=== PATIENT | female | born 1965 | race Two or more races ===

== ENCOUNTER 2023-11-22 11:26 | Inpatient (IN) | payer MEDICAID ==
[~2023-11-22] VITALS: Ht 152.4 cm; Wt 92.9 kg
[2023-11-22 13:29] LABS: Basophils # (auto) 0.1 10 ^3/uL (0-0.2); Basophils % (auto) 0.9 % (0.0-2.0); Hemoglobin 12.2 g/dL (12.2-16.2); Lymphocytes # (auto) 1.8 10 ^3/uL (0.4-5.4); Lymphocytes % (auto) 24.7 % (10.0-50.0); Mean Corpuscular Hemoglobin 25.8 pg (28.0-32.0); Monocytes # (auto) 0.7 10 ^3/uL (0-1.3)
[2023-11-22 13:31] LABS: Eosinophils # (auto) 0 10 ^3/uL (0-0.8); Eosinophils % (auto) 0.7 % (0.0-7.0); Hematocrit 37.5 % (36.0-46.0); Mean Corpuscular Hgb Conc. 32.6 g/dL (32.0-36.0); Mean Corpuscular Volume 79.1 fL (80.0-100.0); Monocytes % (auto) 9.3 % (0.0-12.0); Neutrophils # (auto) 4.7 10 ^3/uL (1.6-8.6); Neutrophils % (auto) 64.4 % (37.0-80.0); Nucleated Red Blood Cells % 0.2 %; Red Blood Cells 4.74 10^6/uL (4.0-5.20); Red Cell Distribution Width 15.9 % (11.8-14.3); White Blood Cell 7.3 10^3/uL (4.4-10.8)
[2023-11-22 13:33] LABS: Chloride 106 mmol/L (98-107); Potassium 3.6 mmol/L (3.5-5.1); Sodium 137 mmol/L (136-145)
[2023-11-22 13:34] LABS: Anion Gap 7 (5-15); Carbon Dioxide 24 mmol/L (20-30)
[2023-11-22 13:35] LABS: Calcium 9.3 mg/dL (8.7-10.4)
[2023-11-22 13:39] LABS: Glucose 101 mg/dL (74-106)
[2023-11-22 13:40] LABS: Blood Urea Nitrogen 12 mg/dL (9-23)
[2023-11-22] MEDS ORDERED: DOCUSATE SOD 100 MG CAP PO PRN (15:30)
[2023-11-22] MEDS ORDERED: MORPHINE SULFATE INJ 2 MG/ml SYRG IV PRN (15:30)
[2023-11-22] MEDS ORDERED: ONDANSETRON HCL 4 MG/2 ML VIAL IV PRN (15:30)
[2023-11-22] MEDS: SODIUM CHLORIDE 0.9% 1,000 ML IV SCH (16:21)
[2023-11-22 16:43] VITALS: PULSE 80; RESP 20; O2SAT 96
[2023-11-22] MEDS ORDERED: LORazepam 2MG/ML-1ML VIAL IV PRN (20:30)
[2023-11-22 21:28] LABS: Triglycerides 176 mg/dL (< 150)
[2023-11-22 21:29] LABS: LDL Cholesterol 83 mg/dL (< 100)
[2023-11-22 21:30] LABS: Cholesterol 143 mg/dL (< 200); HDL Cholesterol 28 mg/dL (40-59)
[2023-11-22] MEDS: MECLIZINE HCL 25 MG TAB PO SCH (23:20)
[2023-11-22] MEDS: ATORVASTATIN 20 MG TAB PO SCH (23:20)
[2023-11-23] VITALS (7 sets, daily range): BP systolic 123–156; BP diastolic 69–79; PULSE 69–80; RESP 14–18; TEMP 97.9–98.2; O2SAT 96–97
[2023-11-23 07:51] LABS: Alanine Aminotransferase 16 U/L (7-40); Albumin 4.2 g/dL (3.2-4.8); Alkaline Phosphatase 139 U/L (46-116); Anion Gap 12 (5-15); BUN/Creatinine Ratio 16.3 (10.0-20.0); Blood Urea Nitrogen 16 mg/dL (9-23); Carbon Dioxide 19 mmol/L (20-30); Chloride 108 mmol/L (98-107); Glucose 128 mg/dL (74-106); Potassium 4.1 mmol/L (3.5-5.1); Sodium 139 mmol/L (136-145)
[2023-11-23 07:52] LABS: Aspartate Aminotransferase 28 U/L (13-40); Bilirubin, Total 0.5 mg/dL (0.2-1.0); Total Protein 7.1 g/dL (5.7-8.2)
[2023-11-23 08:12] LABS: Rapid Strep A Screen-Throat Negative
[2023-11-23] MEDS: ASPirin 81 mg TAB PO SCH (09:42)
[2023-11-23 10:23] LABS: Amphetamine Screen, Urine Neg (NEGATIVE); Barbiturate Scree,Urine Neg (NEGATIVE); Benzodiazephine Screen, Urine Neg (NEGATIVE); Cannabinoid Screen, Urine Neg (NEGATIVE); Cocaine Screen, Urine Neg (NEGATIVE); Opiate Scree,Urine Neg (NEGATIVE); Phencyclidine Screen, Urine Neg (NEGATIVE)
[2023-11-23 10:36] LABS: Urine Bacteria FEW /hpf (None Seen); Urine Blood Negative /uL (Negative); Urine Budding Yeast OCCASIONAL /hpf (None Seen); Urine Clarity Clear (Clear); Urine Color Colorless (Yellow); Urine Protein, UAD Negative (Negative); Urine Specific Gravity 1.005 (1.001-1.035); Urine Urobilinogen Normal (Negative); Urine WBC 16 /hpf (0 - 5); Urine pH 5.5 (5.0-9.0)
[2023-11-23] MEDS ORDERED: NAP500T PO (12:51)
[2023-11-23 13:24] LABS: Basophils # (auto) 0.1 10 ^3/uL (0-0.2); Basophils % (auto) 1.2 % (0.0-2.0); Eosinophils # (auto) 0.1 10 ^3/uL (0-0.8); Eosinophils % (auto) 1.5 % (0.0-7.0); Lymphocytes # (auto) 1.7 10 ^3/uL (0.4-5.4); Mean Corpuscular Volume 79.7 fL (80.0-100.0); Monocytes # (auto) 0.5 10 ^3/uL (0-1.3); Monocytes % (auto) 7.4 % (0.0-12.0); Neutrophils # (auto) 4.8 10 ^3/uL (1.6-8.6); Nucleated Red Blood Cells % 0.2 %; Red Cell Distribution Width 16.3 % (11.8-14.3); White Blood Cell 7.2 10^3/uL (4.4-10.8)
[2023-11-23 13:26] LABS: Hemoglobin 11.5 g/dL (12.2-16.2); Lymphocytes % (auto) 23.8 % (10.0-50.0); Mean Corpuscular Hemoglobin 26.1 pg (28.0-32.0); Mean Corpuscular Hgb Conc. 32.8 g/dL (32.0-36.0); Neutrophils % (auto) 66.1 % (37.0-80.0)
[2023-11-23] MEDS: PIPERACILLIN-TAZOB 3.375GM 100 ML IV SCH (18:50)
[2023-11-23] MEDS: ENOXAPARIN SOD 100 MG/1 ML SYRINGE SC SCH (22:13)
[2023-11-24] VITALS (8 sets, daily range): BP systolic 114–142; BP diastolic 67–88; PULSE 56–94; RESP 14–18; TEMP 97.6–98.1; O2SAT 96–100
[2023-11-24] MEDS: ACETAMINOPHEN 325 MG TAB PO PRN (09:53)
[2023-11-24] MEDS: APIXABAN 5 MG TAB PO SCH (21:56)
[2023-11-25] VITALS (8 sets, daily range): BP systolic 122–154; BP diastolic 63–89; PULSE 61–74; RESP 16–19; TEMP 97–98.1; O2SAT 96–98
[2023-11-25] MEDS ORDERED: AUG875T PO (16:06)
[2023-11-25] MEDS ORDERED: APIX5TAB PO (16:44)
== END 2023-11-25 19:12 | disposition home or self-care (01) | DRG 111 ==
LOC: ER 11:26 → TELE 15:26 → TELE-WESTW 11-23 08:09
PROVIDERS: ADMIT Nurse Practitioner Family; ATTEND Internal Medicine
DX: H81.10 Benign paroxysmal vertigo, unspecified ear (principal); I82.622 Acute embolism and thrombosis of deep veins of left upper extremity; J32.9 Chronic sinusitis, unspecified; J02.9 Acute pharyngitis, unspecified; E66.9 Obesity, unspecified; M81.0 Age-related osteoporosis without current pathological fracture; F17.200 Nicotine dependence, unspecified, uncomplicated; R59.0 Localized enlarged lymph nodes; Z79.01 Long term (current) use of anticoagulants; Z82.49 Family history of ischemic heart disease and other diseases of the circulatory system; Z79.82 Long term (current) use of aspirin; Z79.899 Other long term (current) drug therapy; Z68.39 Body mass index [BMI] 39.0-39.9, adult
CPT/HCPCS: 36415; 70450; 70551; 80048; 80053; 80061; 80307; 81001; 82962; 85025; 87070; 87880; 93005; 93306; 93886; 93971; G0378; J2543

== ENCOUNTER → 2024-12-02 | Outpatient (CLI) | payer MEDICAID ==
[~2024-12-02] MED LIST: APIX5TAB PO; AUG875T PO
[2024-12-02 12:24] LABS: Basophils # (auto) 0.1 10 ^3/uL (0-0.2); Eosinophils # (auto) 0.2 10 ^3/uL (0-0.8); Eosinophils % (auto) 1.8 % (0.0-7.0); Hematocrit 39.2 % (36.0-46.0); Hemoglobin 12.9 g/dL (12.2-16.2); Lymphocytes # (auto) 2.3 10 ^3/uL (0.4-5.4); Lymphocytes % (auto) 27.4 % (10.0-50.0); Mean Corpuscular Hemoglobin 26.8 pg (28.0-32.0); Mean Corpuscular Volume 81.1 fL (80.0-100.0); Monocytes # (auto) 0.5 10 ^3/uL (0-1.3); Monocytes % (auto) 5.6 % (0.0-12.0); Neutrophils # (auto) 5.4 10 ^3/uL (1.6-8.6); Neutrophils % (auto) 64.2 % (37.0-80.0); Platelet Count (auto) 271 10^3/uL (140-450); Red Blood Cells 4.83 10^6/uL (4.0-5.20); Red Cell Distribution Width 15.2 % (11.8-14.3); White Blood Cell 8.5 10^3/uL (4.4-10.8)
[2024-12-02 12:34] LABS: Alanine Aminotransferase 12 U/L (7-40); Albumin 4.5 g/dL (3.2-4.8); Anion Gap 7 (5-15); BUN/Creatinine Ratio 16.5 (10.0-20.0); Bilirubin, Total 0.5 mg/dL (0.2-1.0); Blood Urea Nitrogen 14 mg/dL (9-23); Carbon Dioxide 28 mmol/L (20-31); Chloride 106 mmol/L (98-107); Glucose 93 mg/dL (74-106); Potassium 4.2 mmol/L (3.5-5.1); Sodium 141 mmol/L (136-145); Total Protein 7.9 g/dL (5.7-8.2)
[2024-12-02 12:37] LABS: Alkaline Phosphatase 152 U/L (46-116); Aspartate Aminotransferase 10 U/L (13-40); Cholesterol 215 mg/dL (< 200); HDL Cholesterol 35 mg/dL (40-59); LDL Cholesterol 159 mg/dL (< 100); Triglycerides 157 mg/dL (< 150)
== END | disposition home or self-care (01) ==
LOC: LAB 11:30
PROVIDERS: ATTEND Nurse Practitioner Family
DX: R03.0 Elevated blood-pressure reading, without diagnosis of hypertension (principal); Z00.00 Encounter for general adult medical examination without abnormal findings; Z79.899 Other long term (current) drug therapy
CPT/HCPCS: 36415; 80053; 80061; 82306; 84443; 85025